=== PATIENT | female | born 1990 | race Caucasian/White ===

== ENCOUNTER 2016-03-14 17:58 | Emergency (ER) | payer OTHER ==
[~2016-03-14] VITALS: Ht 165.1 cm; Wt 119.0 kg
[2016-03-14 18:02] VITALS: BP 151/78; PULSE 96; RESP 16; TEMP 99.2; O2SAT 98
[2016-03-14] MEDS ORDERED: IBUP800T23 PO (18:38)
[2016-03-14] MEDS ORDERED: CYCL1TAB29 PO (18:38)
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
== END 2016-03-14 19:36 | disposition home or self-care (01) ==
LOC: PHEFT 17:58
DX: M25.561 Pain in right knee (principal); Z87.09 Personal history of other diseases of the respiratory system; Z86.59 Personal history of other mental and behavioral disorders; Z87.42 Personal history of other diseases of the female genital tract; Z86.69 Personal history of other diseases of the nervous system and sense organs; W22.09XA Striking against other stationary object, initial encounter; Y93.E9 Activity, other interior property and clothing maintenance; Y92.811 Bus as the place of occurrence of the external cause; Y99.0 Civilian activity done for income or pay
CPT/HCPCS: 99283

== ENCOUNTER 2016-03-20 21:37 | Emergency (ER) | payer OTHER ==
[~2016-03-20] VITALS: Ht 165.1 cm; Wt 116.0 kg
[~2016-03-20 21:37] MED LIST: CYCL1TAB29 PO; IBUP800T23 PO
[2016-03-20 21:38] VITALS: BP 180/84; PULSE 99; RESP 18; TEMP 98.1; O2SAT 99
[2016-03-20] MEDS ORDERED: TRAM150C6 PO (22:09)
[2016-03-20] MEDS ORDERED: ALUMINUM/MAGNESIUM/SIMETH 30 ML CUP PO ONE (22:30)
[2016-03-20] MEDS ORDERED: LIDOCAINE VISCOUS 2% SOLN 15 ML UDC PO ONE (22:30)
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
--- NOTE | 2016-03-20 22:54 | RADRPT ---
EXAM DATE/TIME: 03/20/2016 22:32 [facility] COMPARISON: No previous studies available for comparison. INDICATIONS : Chest pain starting today MEDICAL HISTORY : None. SURGICAL HISTORY : None. ENCOUNTER: Initial ACUITY: 1 day PAIN SCORE: 10/10 LOCATION: Center of chest FINDINGS: A single view of the chest demonstrates the lungs to be symmetrically aerated without evidence of mas s, infiltrate or effusion. The cardiomediastinal contours are unremarkable. Osseous structures are intact. CONCLUSION: The lungs are clear. Billy Stephenson MD on March 20, 2016 at 22:53 Board Certified Radiologist. This report was verified electronically.
--- NOTE | 2016-03-21 12:28 | EKG ---
Date Performed: 03/20/2016 Time Performed: 22:06:32 PTAGE: 25 years EKG: Sinus rhythm WITH SINUS ARRHYTHMIA NORMAL ECG NO PREVIOUS TRACING DOCTOR: Donovan Dominguez Interpretating Date/Time 03/21/2016 12:25:40
== END 2016-03-20 23:48 | disposition home or self-care (01) ==
LOC: NEPC 21:37
DX: R07.9 Chest pain, unspecified (principal)
CPT/HCPCS: 71010; 93005

== ENCOUNTER 2016-05-10 18:14 | Emergency (ER) | payer OTHER ==
[~2016-05-10] VITALS: Ht 165.1 cm; Wt 122.5 kg
[~2016-05-10 18:14] MED LIST changes: -CYCL1TAB29 PO; -IBUP800T23 PO; +TRAM150C6 PO
[2016-05-10 18:15] VITALS: BP 144/80; PULSE 96; RESP 20; TEMP 98.2; O2SAT 99
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
== END 2016-05-10 20:38 | disposition home or self-care (01) ==
LOC: NEPB 18:14
DX: J11.1 Influenza due to unidentified influenza virus with other respiratory manifestations (principal); R05 Cough; J45.909 Unspecified asthma, uncomplicated; Z72.0 Tobacco use
CPT/HCPCS: 87081; 87804; 87880; 99283

== ENCOUNTER 2016-08-27 23:00 | Emergency (ER) | payer OTHER ==
[~2016-08-27] VITALS: Ht 165.1 cm; Wt 130.0 kg
[2016-08-27 23:06] VITALS: BP 191/82; PULSE 120; RESP 20; TEMP 98.6; O2SAT 98
[2016-08-27 23:43] VITALS: RESP 22; O2SAT 100
[2016-08-27] MEDS ORDERED: SODIUM CHLORIDE 0.9% FLUSH 10 ML FLUSH IVF PRN (23:45)
[2016-08-27] MEDS ORDERED: RESP: ALBUTEROL 2.5 MG/IPRATROPIUM 0.5 MG NEB (SCH) NEB ONE (23:45)
[2016-08-27] MEDS ORDERED: LORazepam 2 MG/ML VIAL IV PUSH ONE (23:45)
[2016-08-27 23:53] LABS: AUTOMATED NEUTROPHIL # 5.6 TH/MM3 (1.8-7.7); BASOPHIL % 0.4 % (0.0-2.0); EOSINOPHIL # 0.1 TH/MM3 (0-0.4); EOSINOPHIL % 1.2 % (0.0-4.0); HEMO FLAGS DIFF FINAL; LYMPH % 32.2 % (9.0-44.0); MEAN CELL VOLUME 83.9 FL (80.0-100.0); MEAN CORPUSCULAR HEMOGLOBIN 28.3 PG (27.0-34.0); MEAN CORPUSCULAR HGB CONC 33.7 % (32.0-36.0); MONO % 6.7 % (0.0-8.0); NEUT % 59.5 % (16.0-70.0); PLATELET COUNT 291 TH/MM3 (150-450); RED BLOOD COUNT 4.76 MIL/MM3 (4.00-5.30); RED CELL DISTRIBUTION WIDTH 14.3 % (11.6-17.2); WHITE BLOOD COUNT 9.5 TH/MM3 (4.0-11.0)
[2016-08-27 23:57] VITALS: O2SAT 100
[2016-08-28 00:03] LABS: APTT (PATIENT) 31.4 SEC (24.3-30.1); INTERNATIONAL NORMALIZED RATIO 0.9 RATIO; PROTHROMBIN TIME - PATIENT 10.1 SEC (9.8-11.6)
[2016-08-28 00:07] LABS: ALT (GPT) 62 U/L (10-53); ANION GAP 10 MEQ/L (5-15); AST (GOT) 29 U/L (15-37); BICARBONATE 23.2 MEQ/L (21.0-32.0); BLOOD UREA NITROGEN 11 MG/DL (7-18); CHLORIDE 105 MEQ/L (98-107); GLOMERULAR FILTRATION RATE 68 ML/MIN (>89); MAGNESIUM 1.6 MG/DL (1.5-2.5); POTASSIUM 3.7 MEQ/L (3.5-5.1); SODIUM (NA) 138 MEQ/L (136-145)
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
[2016-08-28 00:10] LABS: ALKALINE PHOSPHATASE 72 U/L (45-117); CREATINE KINASE 122 U/L (26-192); TOTAL BILIRUBIN ADULT 0.2 MG/DL (0.2-1.0)
[2016-08-28] MEDS ORDERED: SODIUM CHLOR 0.9% 1000 ML INJ 1,000 ML IV ONE (00:15)
[2016-08-28 00:22] LABS: CKMB 0.7 NG/ML (0.5-3.6)
--- NOTE | 2016-08-28 00:22 | RADRPT ---
EXAM DATE/TIME: 08/27/2016 23:40 [facility] COMPARISON: CHEST SINGLE AP, March 20, 2016, 22:32. INDICATIONS : Pt choked on food earlier and then began vomiting blood. C/O dizziness and weakness. MEDICAL HISTORY : None. SURGICAL HISTORY : None. ENCOUNTER: Initial ACUITY: 1 day PAIN SCORE: 7/10 LOCATION: Bilateral chest FINDINGS: A single view of the chest demonstrates the lungs to be symmetrically aerated without evidence of mas s, infiltrate or effusion. The cardiomediastinal contours are unremarkable. Osseous structures are intact. CONCLUSION: No acute cardiopulmonary process. Anton Deras MD on August 28, 2016 at 0:20 Board Certified Radiologist. This report was verified electronically.
[2016-08-28 00:57] LABS: BLOOD, URINE NEG (NEG); GLUCOSE,URINE NEG (NEG); KETONE, URINE NEG (NEG); MUCUS URINE FEW /lpf (OCC); NITRITE,URINE NEG (NEG); SQUAMOUS EPITHELIAL CELL URINE 1 /hpf (0-5); URINE COLOR YELLOW (YELLW/STRAW)
[2016-08-28 01:02] LABS: COMMENT (UR) CULT NOT INDICATED; CULTURE IF INDICATED CULT NOT INDICATED
--- NOTE | 2016-08-28 16:01 | EKG ---
Date Performed: 08/27/2016 Time Performed: 23:59:26 PTAGE: 26 years EKG: Sinus rhythm NORMAL ECG PREVIOUS TRACING : 03/20/2016 22.06 Compared to prior tracing no significant change DOCTOR: Albino White Interpretating Date/Time 08/28/2016 16:01:03
== END 2016-08-28 01:51 | disposition home or self-care (01) ==
LOC: NEPC 23:00
DX: R07.9 Chest pain, unspecified (principal); R04.2 Hemoptysis; J45.909 Unspecified asthma, uncomplicated; F32.9 Major depressive disorder, single episode, unspecified; F60.3 Borderline personality disorder; F43.10 Post-traumatic stress disorder, unspecified; F41.9 Anxiety disorder, unspecified; E66.01 Morbid (severe) obesity due to excess calories; Z72.0 Tobacco use
CPT/HCPCS: 71010; 80053; 81001; 82550; 82552; 83735; 84484; 84703; 85025; 85610; 85730; 93005; 94664; 96361; 96374; 99285; J2060; J7030

== ENCOUNTER 2016-11-01 22:07 | Emergency (ER) | payer OTHER ==
[~2016-11-01] VITALS: Ht 165.1 cm; Wt 125.0 kg
[2016-11-01 22:09] VITALS: BP 146/82; PULSE 92; RESP 16; TEMP 99.1; O2SAT 98
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
[2016-11-01] MEDS ORDERED: diphenhydrAMINE HCL 50 MG CAP PO ONE (22:30)
[2016-11-01] MEDS ORDERED: DEXAMETHASONE SOD PHOS 20 MG/5 ML VIAL IM ONE (22:30)
== END 2016-11-01 22:48 | disposition home or self-care (01) ==
LOC: EDTENT 22:07
DX: L29.9 Pruritus, unspecified (principal); R21 Rash and other nonspecific skin eruption; Z72.0 Tobacco use
CPT/HCPCS: 96372; 99284; J1100; Q0163

== ENCOUNTER 2016-11-05 17:58 | Emergency (ER) | payer OTHER ==
[~2016-11-05] VITALS: Ht 165.1 cm; Wt 125.0 kg
[2016-11-05 17:59] VITALS: BP 183/103; PULSE 112; RESP 20; TEMP 98.9; O2SAT 98
[2016-11-05] MEDS ORDERED: MEDR4PAK PO (19:31)
[2016-11-05] MEDS ORDERED: ZANT300T PO (19:31)
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
[2016-11-05] MEDS ORDERED: DEXAMETHASONE SOD PHOS 20 MG/5 ML VIAL IM ONE (19:45)
[2016-11-05] MEDS ORDERED: diphenhydrAMINE HCL 50 MG/ML VIAL IM ONE (19:45)
== END 2016-11-05 20:18 | disposition home or self-care (01) ==
LOC: NEPK 17:58
DX: L50.9 Urticaria, unspecified (principal); R21 Rash and other nonspecific skin eruption; J45.909 Unspecified asthma, uncomplicated; Z72.0 Tobacco use
CPT/HCPCS: 96372; 99284; J1100; J1200

== ENCOUNTER 2017-02-24 10:26 | Emergency (ER) | payer OTHER ==
[~2017-02-24] VITALS: Ht 152.4 cm; Wt 120.0 kg
[~2017-02-24 10:26] MED LIST changes: +MEDR4PAK PO; -TRAM150C6 PO; +ZANT300T PO
[2017-02-24 10:35] VITALS: BP 136/85; PULSE 83; RESP 16; TEMP 98.6; O2SAT 100
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
[2017-02-24 12:29] LABS: AUTOMATED NEUTROPHIL # 6.9 TH/MM3 (1.8-7.7); BASOPHIL # 0.3 TH/MM3 (0-0.2); BASOPHIL % 3.1 % (0.0-2.0); EOSINOPHIL # 0.2 TH/MM3 (0-0.4); EOSINOPHIL % 1.5 % (0.0-4.0); HEMOGLOBIN 13.8 GM/DL (11.6-15.3); LYMPHOCYTE # 3.2 TH/MM3 (1.0-4.8); MEAN CELL VOLUME 82.5 FL (80.0-100.0); MEAN CORPUSCULAR HEMOGLOBIN 26.4 PG (27.0-34.0); MEAN PLATELET VOLUME 10.1 FL (7.0-11.0); MONO % 4.4 % (0.0-8.0); MONOCYTE # 0.5 TH/MM3 (0-0.9); PLATELET COUNT 152 TH/MM3 (150-450); RED BLOOD COUNT 5.22 MIL/MM3 (4.00-5.30); RED CELL DISTRIBUTION WIDTH 13.6 % (11.6-17.2); WHITE BLOOD COUNT 11.1 TH/MM3 (4.0-11.0)
[2017-02-24 12:40] LABS: CALCIUM 9.4 MG/DL (8.5-10.1)
[2017-02-24 12:41] LABS: BICARBONATE 23.1 MEQ/L (21.0-32.0)
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
[2017-02-24 12:44] LABS: CREATININE 0.8 MG/DL (0.50-1.00)
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
[2017-02-24 13:15] LABS: LYMPHOCYTES 38 % (9-44); MONOCYTES 8 % (0-8); NEUTROPHIL # MANUAL DIFF 5.7 TH/MM3 (1.8-7.7); POLYS (SEG NEUTROPHILS) 51 % (16-70)
== END 2017-02-24 13:47 | disposition home or self-care (01) ==
LOC: PHED 10:26
DX: S00.03XA Contusion of scalp, initial encounter (principal); S10.93XA Contusion of unspecified part of neck, initial encounter; J45.909 Unspecified asthma, uncomplicated; F60.3 Borderline personality disorder; F43.10 Post-traumatic stress disorder, unspecified; F17.210 Nicotine dependence, cigarettes, uncomplicated; W10.9XXA Fall (on) (from) unspecified stairs and steps, initial encounter; Y92.811 Bus as the place of occurrence of the external cause
CPT/HCPCS: 70450; 72125; 80048; 84703; 85007; 85027; 99284

== ENCOUNTER 2017-03-28 08:02 | Emergency (ER) | payer OTHER ==
[~2017-03-28] VITALS: Ht 165.1 cm; Wt 110.0 kg
[2017-03-28 08:05] VITALS: BP 170/90; PULSE 136; RESP 18; TEMP 98.7; O2SAT 98
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
== END 2017-03-28 11:10 | disposition left against medical advice (07) ==
LOC: NEPC 08:02 → NEPF 11:10
DX: Z04.41 Encounter for examination and observation following alleged adult rape (principal)
CPT/HCPCS: 99281; 99284

== ENCOUNTER 2017-05-11 22:29 | Emergency (ER) | payer OTHER ==
[~2017-05-11] VITALS: Ht 165.1 cm; Wt 120.8 kg
[2017-05-11 22:51] VITALS: BP 166/77; PULSE 97; RESP 18; TEMP 99.5; O2SAT 99
[2017-05-12] MEDS ORDERED: SODIUM CHLORIDE 0.9% FLUSH 10 ML FLUSH IV FLUSH PRN (03:45)
[2017-05-12 03:57] LABS: BILIRUBIN, URINE NEG (NEG); BLOOD, URINE NEG (NEG); GLUCOSE,URINE NEG (NEG); KETONE, URINE NEG (NEG); NITRITE,URINE NEG (NEG); URINE COLOR YELLOW (YELLW/STRAW); URINE LEUKOCYTE ESTERASE NEG (NEG)
[2017-05-12 04:01] LABS: RBC, URINE 0-2 /hpf (0-3); SQUAMOUS EPITHELIAL CELL URINE 0-5 /hpf (0-5); WBC, URINE 0-2 /hpf (0-5)
[2017-05-12 04:17] LABS: AUTOMATED NEUTROPHIL # 6.4 TH/MM3 (1.8-7.7); BASOPHIL % 0.3 % (0.0-2.0); EOSINOPHIL # 0.1 TH/MM3 (0-0.4); EOSINOPHIL % 1.4 % (0.0-4.0); HEMOGLOBIN 13.8 GM/DL (11.6-15.3); LYMPH % 28.7 % (9.0-44.0); LYMPHOCYTE # 2.8 TH/MM3 (1.0-4.8); MEAN CELL VOLUME 82.9 FL (80.0-100.0); MEAN CORPUSCULAR HEMOGLOBIN 27.2 PG (27.0-34.0); MEAN CORPUSCULAR HGB CONC 32.8 % (32.0-36.0); MEAN PLATELET VOLUME 8.4 FL (7.0-11.0); MONO % 3.5 % (0.0-8.0); MONOCYTE # 0.3 TH/MM3 (0-0.9); NEUT % 66.1 % (16.0-70.0); PLATELET COUNT 326 TH/MM3 (150-450); RED BLOOD COUNT 5.06 MIL/MM3 (4.00-5.30); RED CELL DISTRIBUTION WIDTH 13.6 % (11.6-17.2); WHITE BLOOD COUNT 9.6 TH/MM3 (4.0-11.0)
[2017-05-12 04:28] LABS: BICARBONATE 26.2 MEQ/L (21.0-32.0); CALCIUM 9.1 MG/DL (8.5-10.1)
[2017-05-12 04:32] LABS: CREATININE 0.93 MG/DL (0.50-1.00)
[2017-05-12 04:34] VITALS: BP 110/62; PULSE 68; RESP 20; TEMP 98.9; O2SAT 98
[2017-05-12] MEDS ORDERED: EPIP0.3I IM (04:37)
--- NOTE | 2017-05-12 04:39 | PD ---
HPI Chief Complaint: Flank/Kidney Pain Time Seen by Provider: 03:41 Travel History International Travel<30 days: No Contact w/Intl Traveler<30days: No Traveled to known affect area: No History of Present Illness HPI 27-year-old female presents to the emergency department for complaint of left- sided abdominal pain extending to the groin and left flank pain. No fever no chills nausea without vomiting no diarrhea or constipation. Urinary frequency without hesitancy dysuria or hematuria. Last period was 6 months ago patient has a Nexplanon and has infrequent menses. Patient denies . Patient has family history of kidney stones. Patient denies injury or fall. Movement worsened symptoms. Patient does not report any lower extremity numbness tingling or weakness saddle anesthesia and denies bladder or bowel dysfunction. Patient rates her pain is moderate to severe. Patient is taking no medications for symptom relief. PFSH Past Medical History Narrative Medical Asthma bipolar disorder STI; no surgery; occasional alcohol use; nursing notes reviewed Hx Anticoagulant Therapy: No ADHD: No Asthma: Yes Bipolar Disorder: Yes (BODERLINE PERSONALITY DISORDER) Weight (Kg): 3 Anxiety: Yes Depression: Yes Cancer: No Cardiovascular Problems: No Chemotherapy: No Cerebrovascular Accident: No Developmental Delay: No Diabetes: No Diminished Hearing: No Headaches: Yes Psychiatric: Yes (BOARDERLINE PERSONALITY DISORDER, PTSD ) Reproductive: Yes (HPV, GONORRHEA, HERPES 1 AND 2, CHLAMYDIA) Respiratory: Yes (ASTHMA) Immunizations Current: No Migraines: Yes (OCCASIONAL) Seizures: No Thyroid Disease: No Ulcer: No Tetanus Vaccination: Unknown Influenza Vaccination: No ?: Not LMP: " MONTHS AGO" : 2 Para: 2 Miscarriage: 0 : 0 Ectopic : No Ovarian Cysts: No Tubal Ligation: No Past Surgical History Appendectomy: No Section: No Cholecystectomy: No Hysterectomy: No Social History Alcohol Use: Yes (rarely ) Tobacco Use: No (4-5 CIGARETTTES) Substance Use: No Allergies-Medications (Allergen,Severity, Reaction): Coded Allergies: bee venom protein (honey bee) (Unverified Allergy, Severe, SWELLING, ) hornet venom (Unverified Allergy, Mild, Swelling, 05/12/17) Reported Meds & Prescriptions Reported Meds & Active Scripts Active Reported Epipen 2-Rajeev Inj (Epinephrine) 0.3 Mg/0.3 Ml Pfpen 0.3 Mg IM ONCE PRN Review of Systems Except as stated in HPI: all other systems reviewed are Neg General / Constitutional: No: Fever, Chills HENT: No: Congestion Cardiovascular: No: Chest Pain or Discomfort Gastrointestinal: Positive: Nausea, Abdominal Pain (left lateral and flnak), No : Vomiting, Diarrhea Genitourinary: Positive: Flank Pain, No: Urgency, Frequency, Dysuria, Hematuria , Pelvic Pain Musculoskeletal: No: Myalgias, Arthralgias Skin: No Rash Neurologic: No: Weakness Psychiatric: No: Anxiety Hematologic/Lymphatic: No: Lymph Node Enlargement Physical Exam Narrative GENERAL: Well-developed well-nourished female no acute distress or respiratory distress SKIN: Warm and dry. HEAD: Normocephalic. EYES: No scleral icterus. No injection or drainage. NECK: Supple, trachea midline. No JVD or lymphadenopathy. CARDIOVASCULAR: Regular rate and rhythm without murmurs, gallops, or rubs. RESPIRATORY: Breath sounds equal bilaterally. No accessory muscle use. GASTROINTESTINAL: Abdomen soft, left-sided upper and lower quadrant tenderness, nondistended. No guarding or rebound. MUSCULOSKELETAL: No cyanosis, or edema. BACK: Nontender without obvious deformity. Left-sided CVA tenderness. Data Data Last Documented VS Vital Signs Date Time Temp Pulse Resp B/P (MAP) Pulse Ox O2 Delivery O2 Flow Rate FiO2 05/12/17 04:34 98.9 68 20 110/62 (78) 98 Orders Orders Urinalysis - C+S If Indicated (05/12/17 03:41) Ct Abd/Pel W/O Iv Contrast (05/12/17 03:41) Iv Access Insert/Monitor (05/12/17 03:41) Ecg Monitoring (05/12/17 03:41) Oximetry (05/12/17 03:41) Sodium Chloride 0.9% Flush (Ns Flush) (05/12/17 03:45) Ed Urine Pregnancytest Poc (05/12/17 03:41) Complete Blood Count With Diff (05/12/17 03:41) Basic Metabolic Panel (Bmp) (05/12/17 03:41) Ed Discharge Order (05/12/17 05:30) Labs Laboratory Tests Test 05/12/17 03:50 05/12/17 04:00 Urine Color YELLOW Urine Turbidity CLEAR Urine pH 6.0 Urine Specific [place] 1.025 Urine Protein NEG mg/dL Urine Glucose (UA) NEG mg/dL Urine Ketones NEG mg/dL Urine Occult Blood NEG Urine Nitrite NEG Urine Bilirubin NEG Urine Urobilinogen 0.2 MG/DL Urine Leukocyte Esterase NEG Urine RBC 0-2 /hpf Urine WBC 0-2 /hpf Urine Squamous Epithelial Cells 0-5 /hpf Urine Bacteria NONE /hpf Microscopic Urinalysis Comment CULT NOT INDICATED White Blood Count 9.6 TH/MM3 Red Blood Count 5.06 MIL/MM3 Hemoglobin 13.8 GM/DL Hematocrit 42.0 % Mean Corpuscular Volume 82.9 FL Mean Corpuscular Hemoglobin 27.2 PG Mean Corpuscular Hemoglobin Concent 32.8 % Red Cell Distribution Width 13.6 % Platelet Count 326 TH/MM3 Mean Platelet Volume 8.4 FL Neutrophils (%) (Auto) 66.1 % Lymphocytes (%) (Auto) 28.7 % Monocytes (%) (Auto) 3.5 % Eosinophils (%) (Auto) 1.4 % Basophils (%) (Auto) 0.3 % Neutrophils # (Auto) 6.4 TH/MM3 Lymphocytes # (Auto) 2.8 TH/MM3 Monocytes # (Auto) 0.3 TH/MM3 Eosinophils # (Auto) 0.1 TH/MM3 Basophils # (Auto) 0.0 TH/MM3 CBC Comment DIFF FINAL Differential Comment Blood Urea Nitrogen 13 MG/DL Creatinine 0.93 MG/DL Random Glucose 97 MG/DL Calcium Level 9.1 MG/DL Sodium Level 139 MEQ/L Potassium Level 3.9 MEQ/L Chloride Level 106 MEQ/L Carbon Dioxide Level 26.2 MEQ/L Anion Gap 7 MEQ/L Estimat Glomerular Filtration Rate 73 ML/MIN MDM Medical Decision Making Medical Screen Exam Complete: Yes Emergency Medical Condition: Yes Medical Record Reviewed: Yes Interpretation(s) poc hcg: negative CBC & BMP Diagram 05/12/17 04:00 Calcium Level 9.1 Vital Signs Date Time Temp Pulse Resp B/P (MAP) Pulse Ox O2 Delivery O2 Flow Rate FiO2 05/12/17 04:34 98.9 68 20 110/62 (78) 98 05/12/17 04:13 20 05/11/17 22:51 99.5 97 18 166/77 (106) 99 ua: wnl Last Impressions Abdomen/Pelvis CT 05/12/17 0341 Signed Impressions: Service Date/Time: April 04:19 - CONCLUSION: Negative renal colic CT. Billy Stephenson MD Differential Diagnosis Flank pain, renal colic, UTI, colitis, diverticulitis, ovarian cyst, tubo- ovarian abscess, ovarian torsion, ectopic Narrative Course IV access obtained specimens collected and sent for resulting imaging study ordered [id number] hCG: negative Lab values are found to be in normal range CT abdomen pelvis kidney stone protocol reveals no acute process At 5:30 AM patient is aware of lab results CT results and patient is clinically improved; suspect pain may be musculoskeletal nature due to duration of symptoms and worsening symptoms with movement and activity. Patient is encouraged to follow-up with primary care provider. Patient provided prescription for Robaxin and encouraged to use ibuprofen per package directions or high-dose ibuprofen 800 mg every 8 hours as needed for pain associated with inflammation. Patient reports understanding diagnosis and discharge instructions. Diagnosis Primary Impression: Left flank pain Referrals: Primary Care Physician call for appointment Patient Instructions: General Instructions Departure Forms: Tests/Procedures, Work Release Special Instructions: no work x 1 day Additional Instructions: Increase fluid hydration May use ice intermittently for first 12-24 hours then moist heat for comfort purposes Take ibuprofen/Motrin/Advil may take 600 mg as often as every 6 hours or maximum dose 800 mg every 8 hours for pain associated inflammation or for fever 100.4F or greater May use acetaminophen/Tylenol every 4-6 hours as needed for minor pain or for fever 100.4F or greater Return to the emergency department for any concerns or change in condition No work 1 day Med/Other Pt SpecificInfo: Prescription(s) given Scripts Methocarbamol (Robaxin) 750 Mg Tab 750 MG PO Q6HR for Muscle Spasm, #10 TAB 0 Refills Prov: Michell Menard MD 05/12/17 Disposition: 01 DISCHARGE HOME Condition: Stable Michell Menard MD May 12, 2017 04:39
--- NOTE | 2017-05-12 05:12 | RADRPT ---
EXAM DATE/TIME: 05/12/2017 04:19 [facility] COMPARISON: No previous studies available for comparison. INDICATIONS : Left flank abdomen pain. ORAL CONTRAST: No oral contrast ingested. RADIATION DOSE: 27.93 CTDIvol (mGy) ; High dose protocol; Patient body habitus MEDICAL HISTORY : None SURGICAL HISTORY : None. ENCOUNTER: Initial ACUITY: 1 day PAIN SCALE: 7/10 LOCATION: Left flank TECHNIQUE: Renal colic protocol. Volumetric scanning of the abdomen and pelvis was performed. Using automated exposure control and adjustment of the mA and/or kV according to patient size, radiation dose was kep t as low as reasonably achievable to obtain optimal diagnostic quality images. DICOM format image da ta is available electronically for review and comparison. FINDINGS: Right side: No calcified renal stones. No evidence of hydronephrosis. No calcifications along the right ureter. Left side: No calcified renal stones. No evidence of hydronephrosis. No calcifications along the left ureter. Bladder: Smooth margins. No calcifications within the lumen. Other: No calcified gallstones. Anteverted uterus. No dilated loops of small and large bowel. CONCLUSION: Negative renal colic CT. Billy Stephenson MD on May 12, 2017 at 5:07 Board Certified Radiologist. This report was verified electronically.
[2017-05-12] MEDS ORDERED: ROBA750T PO (05:32)
[2017-05-12 05:54] VITALS: BP 114/72
== END 2017-05-12 05:56 | disposition home or self-care (01) ==
LOC: PHED 22:29
DX: R10.9 Unspecified abdominal pain (principal); J45.909 Unspecified asthma, uncomplicated; F41.9 Anxiety disorder, unspecified; F43.10 Post-traumatic stress disorder, unspecified; F60.3 Borderline personality disorder; F17.210 Nicotine dependence, cigarettes, uncomplicated
CPT/HCPCS: 74176; 80048; 81001; 84703; 85025; 99284